=== PATIENT | male | born 1970 | race Hispanic/Latino ===

== ENCOUNTER 2018-04-18 19:10 | Emergency (ER) | payer OTHER ==
--- NOTE | 2018-04-18 20:22 | RAD REPORT ---
EXAM DESCRIPTION: RAD - Femur Right - 04/18/2018 8:03 pm CLINICAL HISTORY: Leg pain, blunt force trauma COMPARISON: None. FINDINGS: No fracture, dislocation or periosteal reaction noted. No acute or suspicious bony finding . No air or foreign body in the soft tissues. No evidence for joint effusion. There is spurring at th e quadriceps attachment to the patella. No hip joint effusion. IMPRESSION: Negative right femur examination for acute or significant finding. .
[2018-04-18] MEDS ORDERED: HYDROCODONE/APAP 10/325 TAB ONE (20:40)
[2018-04-18] MEDS ORDERED: IBUPROFEN 400 MG TAB ONE (20:40)
--- NOTE | 2018-04-18 21:52 | EDPHYS ---
Physician Documentation [facility] Name: Miguel Garrido Age: 47 yrs Sex: Male : 1970 Arrival Date: 04/18/2018 Time: 19:13 Bed 24 Private MD: ED Physician Giovanni Smith HPI: 04/18 20:21 This 47 yrs old Male presents to ER via Wheelchair with complaints of Fall pattie Injury, Leg Injury, Leg Pain. Historical: - Allergies: 19:32 No Known Allergies; bp - Home Meds: 19:32 Metformin Oral [Active]; bp - PMHx: 19:32 Diabetes - NIDDM; bp - Immunization history:: Adult Immunizations up to date. - Social history:: Smoking status: Patient uses tobacco products, smokes one-half pack cigarettes per day, Patient/guardian denies using alcohol. - Ebola Screening: : Patient negative for fever greater than or equal to 101.5 degrees Fahrenheit, and additional compatible Ebola Virus Disease symptoms Patient denies exposure to infectious person Patient denies travel to an Ebola-affected area in the 21 days before illness onset No symptoms or risks identified at this time. ROS: 20:22 Constitutional: Negative for fever, chills, and weight loss, Eyes: Negative for injury, pattie pain, redness, and discharge, ENT: Negative for injury, pain, and discharge, Neck: Negative for injury, pain, and swelling, Cardiovascular: Negative for chest pain, palpitations, and edema, Respiratory: Negative for shortness of breath, cough, wheezing, and pleuritic chest pain, Abdomen/GI: Negative for abdominal pain, nausea, vomiting, diarrhea, and constipation, Back: Negative for injury and pain, : Negative for injury, bleeding, discharge, and swelling, Skin: Negative for injury, rash, and discoloration, Neuro: Negative for headache, weakness, numbness, tingling, and seizure, Psych: Negative for depression, anxiety, suicide ideation, homicidal ideation, and hallucinations, Allergy/Immunology: Negative for hives, rash, and allergies, Endocrine: Negative for neck swelling, polydipsia, polyuria, polyphagia, and marked weight changes, Hematologic/Lymphatic: Negative for swollen nodes, abnormal bleeding, and unusual bruising. 20:22 MS/extremity: Positive for injury or acute deformity, pain, of the lateral aspect of right thigh and right quadriceps. Exam: 20:22 Constitutional: This is a well developed, well nourished patient who is awake, alert, pattie and in no acute distress. Head/Face: Normocephalic, atraumatic. Eyes: Pupils equal round and reactive to light, extra-ocular motions intact. Lids and lashes normal. Conjunctiva and sclera are non-icteric and not injected. Cornea within normal limits. Periorbital areas with no swelling, redness, or edema. ENT: Nares patent. No nasal discharge, no septal abnormalities noted. Tympanic membranes are normal and external auditory canals are clear. Oropharynx with no redness, swelling, or masses, exudates, or evidence of obstruction, uvula midline. Mucous membranes moist. Neck: Trachea midline, no thyromegaly or masses palpated, and no cervical lymphadenopathy. Supple, full range of motion without nuchal rigidity, or vertebral point tenderness. No Meningismus. Chest/axilla: Normal chest wall appearance and motion. Nontender with no deformity. No lesions are appreciated. Cardiovascular: Regular rate and rhythm with a normal S1 and S2. No gallops, murmurs, or rubs. Normal PMI, no JVD. No pulse deficits. Respiratory: Lungs have equal breath sounds bilaterally, clear to auscultation and percussion. No rales, rhonchi or wheezes noted. No increased work of breathing, no retractions or nasal flaring. Abdomen/GI: Soft, non-tender, with normal bowel sounds. No distension or tympany. No guarding or rebound. No evidence of tenderness throughout. Back: No spinal tenderness. No costovertebral tenderness. Full range of motion. Male : Normal genitalia with no discharge or lesions. Skin: Warm, dry with normal turgor. Normal color with no rashes, no lesions, and no evidence of cellulitis. Neuro: Awake and alert, GCS 15, oriented to person, place, time, and situation. Cranial nerves II-XII grossly intact. Motor strength 5/5 in all extremities. Sensory grossly intact. Cerebellar exam normal. Normal gait. Psych: Awake, alert, with orientation to person, place and time. Behavior, mood, and affect are within normal limits. 20:22 Musculoskeletal/extremity: ROM: limited active range of motion, limited passive range of motion, Circulation is intact in all extremities. Sensation intact. Compartment Syndrome exam of affected extremity: is normal. DVT Exam: negative Homans' sign noted on exam, no appreciated bluish discoloration, no erythema, no increased warmth, pain, swelling, tenderness. Vital Signs: 19:32 BP 112 / 75; Pulse 71; Resp 16; Temp 98; Pulse Ox 97% ; Weight 99.79 kg; Height 5 ft. 8 bp in. (172.72 cm); 20:30 BP 131 / 74; Pulse 92; Resp 14; Pulse Ox 98% ; bp 19:32 Body Mass Index 33.45 (99.79 kg, 172.72 cm) bp MDM: 19:33 Patient medically screened. [facility] 20:22 Data reviewed: vital signs, nurses notes, radiologic studies, plain films. [facility] 04/18 19:36 Order name: XRAY Femur RIGHT; Complete Time: 20:27 bp 04/18 20:21 Order name: Crutch Training; Complete Time: 20:28 [facility] 04/18 20:21 Order name: Ice pack; Complete Time: 20:28 [facility] Administered Medications: 20:45 Drug: Motrin 600 mg Route: PO; bp 20:56 Follow up: Response: Pain is decreased bp 20:45 Drug: [place] 10 mg-325 mg 1 tabs Route: PO; bp 20:57 Follow up: Response: Pain is decreased bp Disposition: 04/18/18 20:31 Discharged to Home. Impression: Contusion of right thigh. - Condition is Stable. - Discharge Instructions: Contusion, Type 2 Diabetes Mellitus, Diagnosis, Adult, Contusion, [id number], Type 2 Diabetes Mellitus, Self Care, Adult, Type 2 Diabetes Mellitus, Self Care, Adult, [id number]. - Prescriptions for Ibuprofen 600 mg Oral Tablet - take 1 tablet by ORAL route every 8 hours As needed take with food; 21 tablet. Tylenol- Codeine #3 300-30 mg Oral Tablet - take 2 tablet by ORAL route every 6 hours As needed; 30 tablet. - Medication Reconciliation Form, Thank You Letter, Antibiotic Education, Prescription Opioid Use form. - Follow up: Private Physician; When: 2 - 3 days; Reason: Recheck today's complaints, Continuance of care, Re-evaluation by your physician. Follow up: Norberto Hernandez MD; When: 2 - 3 days; Reason: Recheck today's complaints, Re-evaluation by your physician. - Problem is new. - Symptoms have improved. Signatures: Dispatcher [employer] EDMS Giovanni Smith MD MD cha Peltier, Brian, RN RN bp Corrections: (The following items were deleted from the chart) 21:00 20:31 04/18/2018 20:31 Discharged to Home. Impression: Contusion of right thigh. bp Condition is Stable. Forms are Medication Reconciliation Form, Thank You Letter, Antibiotic Education, Prescription Opioid Use. Follow up: Private Physician; When: 2 - 3 days; Reason: Recheck today's complaints, Continuance of care, Re-evaluation by your physician. Follow up: Norberto Hernandez; When: 2 - 3 days; Reason: Recheck today's complaints, Re-evaluation by your physician. Problem is new. Symptoms have improved. pattie
--- NOTE | 2018-04-18 21:52 | ER ---
Nurse's Notes [facility] Name: Miguel Garrido Age: 47 yrs Sex: Male : 1970 Arrival Date: 04/18/2018 Time: 19:13 Bed 24 Private MD: Diagnosis: Contusion of right thigh Presentation: 04/18 19:29 Presenting complaint: Patient states: A FRIDGE AND BHAVIN FELL ON MY R THIGH. Transition bp of care: patient was not received from another setting of care. Onset of symptoms was April 18, 2018 at 19:00. Risk Assessment: Do you want to hurt yourself or someone else? Patient reports no desire to harm self or others. Initial Sepsis Screen: Does the patient meet any 2 criteria? No. Patient's initial sepsis screen is negative. Does the patient have a suspected source of infection? No. Patient's initial sepsis screen is negative. Care prior to arrival: None. 19:29 Method Of Arrival: Wheelchair bp 19:29 Acuity: PRIMITIVO 4 bp Triage Assessment: 19:32 General: Appears in no apparent distress. uncomfortable, Behavior is calm, cooperative, bp appropriate for age. Pain: Complains of pain in right quadriceps. EENT: No deficits noted. Neuro: Level of Consciousness is awake, alert, obeys commands, Oriented to person, place, time, situation, Appropriate for age. Cardiovascular: No deficits noted. Respiratory: Airway is patent Respiratory effort is even, unlabored, Respiratory pattern is regular, symmetrical. GI: No signs and/or symptoms were reported involving the gastrointestinal system. : No signs and/or symptoms were reported regarding the genitourinary system. Derm: No deficits noted. Musculoskeletal: Circulation, motion, and sensation intact. Range of motion: intact in all extremities, NONE NOTED Swelling absent. Historical: - Allergies: 19:32 No Known Allergies; bp - Home Meds: 19:32 Metformin Oral [Active]; bp - PMHx: 19:32 Diabetes - NIDDM; bp - Immunization history:: Adult Immunizations up to date. - Social history:: Smoking status: Patient uses tobacco products, smokes one-half pack cigarettes per day, Patient/guardian denies using alcohol. - Ebola Screening: : Patient negative for fever greater than or equal to 101.5 degrees Fahrenheit, and additional compatible Ebola Virus Disease symptoms Patient denies exposure to infectious person Patient denies travel to an Ebola-affected area in the 21 days before illness onset No symptoms or risks identified at this time. Screenin:35 Abuse screen: Denies threats or abuse. Denies injuries from another. Nutritional bp screening: No deficits noted. Tuberculosis screening: No symptoms or risk factors identified. Fall Risk None identified. Assessment: 19:34 General: NO HEMATOMA OR DEFORMITY NOTED, + WEIGHT BEARING. bp 20:58 Reassessment: PT D/C HOME ON CRUTCHES WITH FAMILY, DX WITH R THIGH CONTUSION. bp Vital Signs: 19:32 BP 112 / 75; Pulse 71; Resp 16; Temp 98; Pulse Ox 97% ; Weight 99.79 kg; Height 5 ft. 8 bp in. (172.72 cm); 20:30 BP 131 / 74; Pulse 92; Resp 14; Pulse Ox 98% ; bp 19:32 Body Mass Index 33.45 (99.79 kg, 172.72 cm) bp ED Course: 19:13 Patient arrived in ED. al2 19:28 Bassam Diaz, LEANDRO is Primary Nurse. bp 19:31 Triage completed. bp 19:33 Giovanni Smith MD is Attending Physician. pattie 19:34 Arm band placed on. bp 19:35 Patient has correct armband on for positive identification. Placed in gown. Bed in low bp position. Call light in reach. Side rails up X2. Adult w/ patient. 20:00 X-ray completed. Patient tolerated procedure well. ml 20:01 XRAY Femur RIGHT In Process Unspecified. EDMS 20:31 Norberto Hernandez MD is Referral Physician. pattie 20:59 No provider procedures requiring assistance completed. Patient did not have IV access bp during this emergency room visit. Crutch training done. Administered Medications: 20:45 Drug: Motrin 600 mg Route: PO; bp 20:56 Follow up: Response: Pain is decreased bp 20:45 Drug: [place] 10 mg-325 mg 1 tabs Route: PO; bp 20:57 Follow up: Response: Pain is decreased bp Outcome: 20:31 Discharge ordered by . ptatie 20:59 Discharged to home with crutches, with family. bp 20:59 Condition: stable 20:59 Discharge instructions given to patient, Instructed on discharge instructions, follow up and referral plans. medication usage, crutch walking, Demonstrated understanding of instructions, follow-up care, medications, crutch walking, Prescriptions given X 2. 21:00 Patient left the ED. bp Signatures: Dispatcher [employer] Giovanni Walker MD MD cha Lopez, Melissa ml Peltier, Brian, RN RN bp Mercado, Bebe reagan
== END 2018-04-18 21:00 | disposition home or self-care (01) ==
LOC: ER 19:10
DX: S70.11XA Contusion of right thigh, initial encounter (principal); W19.XXXA Unspecified fall, initial encounter; Y93.9 Activity, unspecified; Y92.9 Unspecified place or not applicable; E11.9 Type 2 diabetes mellitus without complications; F17.210 Nicotine dependence, cigarettes, uncomplicated
CPT/HCPCS: 99284

== ENCOUNTER 2020-04-09 16:11 | Observation (INO) | payer OTHER ==
[2020-04-09 16:54] LABS: Absolute Lymphocytes (CBC) 1.4 K/uL (0.7-4.9); Basophils % 0.6 % (0-1.3); Hematocrit 47.6 % (39.6-49.0); Lymphocytes % 13.4 % (15.3-44.8); MPV 9.3 fL (7.6-11.3); RBC Red Blood Cell Count 5.34 M/uL (4.33-5.43)
[2020-04-09 17:02] LABS: Protime INR 1.08
[2020-04-09 17:17] LABS: Albumin 3.9 g/dL (3.4-5.0); Bilirubin Direct 0.2 mg/dL (0-0.2); Bilirubin Total 0.7 mg/dL (0.2-1.0); Magnesium 1.7 mg/dL (1.8-2.4); Potassium 3.7 mmol/L (3.5-5.1); Protein, Total 8.1 g/dL (6.4-8.2); Troponin (Emerg Dept Use Only) 0.04 ng/mL (0.0-0.045)
--- NOTE | 2020-04-09 17:21 | RAD REPORT ---
EXAM DESCRIPTION: RAD - Chest Single View - 04/09/2020 4:50 pm CLINICAL HISTORY: dizziness, shortness of breath COMPARISON: None TECHNIQUE: AP portable chest image was obtained 04/09/2020 4:50 pm . FINDINGS: Lung volumes are low. No peripheral mass or consolidation. Lung markings and vasculature a re accentuated by body habitus and low lung volumes. Mild edema could be masked. Heart and vasculature are normal. No measurable pleural effusion and no pneumothorax. No acute bony abnormality seen. No acute aortic findings suspected. IMPRESSION: No acute cardiopulmonary process. Low lung volumes accentuate vasculature and lung markings. This could potentially mask early edema.
[2020-04-09] MEDS ORDERED: MAGNESIUM SULFATE 1 gm IVPB 1 GM/100 ML BAG IV ONE (18:15)
--- NOTE | 2020-04-09 19:56 | EDPHYS ---
Physician Documentation [facility] Name: Miguel Garrido Age: 49 yrs Sex: Male : 1970 Arrival Date: 04/09/2020 Time: 16:12 Bed 18 Private MD: ED Physician Jose Kohler HPI: 04/09 16:19 This 49 yrs old Male presents to ER via EMS with complaints of General cp Weakness and Dizziness. 16:19 The patient presents to the emergency department with weakness of the entire body, cp generalized weakness, that is mild. Onset: The symptoms/episode began/occurred today. Context: occurred while the patient was working. 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 cp Patient reports he sat down and started feeling better. Denies having chest pain, but reports shortness of breath with symptoms. Historical: - Allergies: 16:15 No Known Allergies; bp - Home Meds: 16:15 Metformin Oral [Active]; bp - PMHx: 16:15 Diabetes - NIDDM; bp - Immunization history:: Adult Immunizations up to date. - Social history:: Smoking status: Patient denies any tobacco usage or history of. ROS: 16:25 Constitutional: Negative for body aches, chills, fever, poor PO intake. cp 16:25 Eyes: Negative for injury, pain, redness, and discharge. cp 16:25 Cardiovascular: Negative for chest pain, palpitations. cp 16:25 Respiratory: Negative for cough, wheezing. 16:25 Abdomen/GI: Negative for abdominal pain, nausea, vomiting, and diarrhea. 16:25 Back: Negative for radiated pain. 16:25 Neuro: Positive for dizziness, weakness, Negative for altered mental status, syncope. 16:25 All other systems are negative. Exam: 16:30 Constitutional: The patient appears in no acute distress, alert, awake, cp non-diaphoretic, non-toxic, well developed, well nourished, obese. 16:30 Head/Face: Normocephalic, atraumatic. cp 16:30 Eyes: Periorbital structures: appear normal. 16:30 ENT: External ear(s): are unremarkable, Nose: is normal, Mouth: Lips: moist, Oral mucosa: moist, Posterior pharynx: Airway: no evidence of obstruction, patent. 16:30 Neck: ROM/movement: is normal, is supple, without pain, no range of motions limitations. 16:30 Chest/axilla: Inspection: normal, Palpation: is normal, no crepitus, no tenderness. 16:30 Cardiovascular: Rate: tachycardic, Rhythm: regular, Edema: is not appreciated, JVD: is not appreciated. 16:30 Respiratory: the patient does not display signs of respiratory distress, Respirations: normal, no use of accessory muscles, no retractions, labored breathing, is not present, Breath sounds: are clear throughout, no decreased breath sounds. 16:30 Abdomen/GI: Inspection: abdomen appears normal, Palpation: abdomen is soft and non-tender, in all quadrants. 16:30 Neuro: Orientation: to person, place \T\ time. Mentation: is normal, Motor: moves all fours, strength is normal. 17:01 ECG was reviewed by the Attending Physician. cp Vital Signs: 16:12 BP 106 / 70; Pulse 109; Resp 17; Temp 97.9; Pulse Ox 98% ; bp 16:13 BP 111 / 72; Pulse 104; Resp 18; Temp 98.5(O); Pulse Ox 97% on R/A; Weight 117.93 kg jp3 (R); Height 5 ft. 8 in. (172.72 cm) (R); Pain 0/10; 16:48 BP 117 / 75 LA Supine (auto/lg); Pulse 97; Pulse Ox 97% on R/A; jp3 16:50 BP 123 / 79 Sitting; Pulse 97; Pulse Ox 100% on R/A; bp 16:52 BP 119 / 75 Standing; Pulse 106; Pulse Ox 100% on R/A; bp 17:43 BP 120 / 68; Pulse 99; Resp 24; Pulse Ox 97% ; bp 18:07 BP 119 / 67; Pulse 100; Resp 23; Pulse Ox 98% ; bp 19:20 BP 121 / 75; Pulse 89; Resp 20; Temp 98.2; Pulse Ox 99% ; Pain 0/10; rr5 22:55 BP 103 / 59; Pulse 79; Resp 20 S; Pulse Ox 96% on R/A; bb 16:13 Body Mass Index 39.53 (117.93 kg, 172.72 cm) jp3 16:52 Pt did NOT report any dizziness. bp NIH Stroke Scale Scores: 16:17 NIHSS Score: 0 bp MDM: 16:17 Patient medically screened. 19:50 Data reviewed: vital signs, nurses notes, lab test result(s), EKG, radiologic studies, cp plain films, and as a result, I will admit patient. 19:50 Test interpretation: by ED physician or midlevel provider: ECG. Counseling: I had a cp detailed discussion with the patient and/or guardian regarding: the historical points, exam findings, and any diagnostic results supporting the discharge/admit diagnosis, lab results, radiology results. 19:55 Physician consultation: Valerio ALONZO was called at 19:55, no answer. cp 20:00 Physician consultation: Valerio ALONZO was called at 20:00, was contacted at 20:00, cp regarding admission, to the telemetry unit. patient's condition. 04/09 16:19 Order name: Basic Metabolic Panel; Complete Time: 17:51 04/09 18:25 Interpretation: Normal except: CO2 20; GLUC 322; CRE 1.53; GFR 48. 04/09 16:19 Order name: CBC with Diff; Complete Time: 17:51 04/09 18:25 Interpretation: Normal except: MELISSA% 79.1; LYM% 13.4; NEUT A 8.3. 04/09 16:19 Order name: LFT's; Complete Time: 17:51 04/09 18:25 Interpretation: Normal except: AST 51; ALT 114; GLOB 4.2; A/G 0.9. 04/09 16:19 Order name: Magnesium; Complete Time: 17:51 04/09 17:52 Interpretation: Abnormal: MG 1.7. 04/09 16:19 Order name: PT-INR; Complete Time: 17:51 04/09 18:25 Interpretation: Abnormal: PT 12.7. 04/09 16:19 Order name: Troponin (emerg Dept Use Only); Complete Time: 17:51 04/09 18:26 Interpretation: Reviewed. 04/09 16:19 Order name: XRAY Chest (1 view); Complete Time: 17:51 04/09 16:19 Order name: CPK; Complete Time: 17:51 04/09 18:35 Order name: Glucose, Ancillary Testing; Complete Time: 18:36 EDMS 04/09 18:57 Order name: Troponin I; Complete Time: 19:47 cp 04/09 19:47 Interpretation: Abnormal: TROP 0.06. cp 04/09 19:57 Order name: CT Head Brain wo Cont; Complete Time: 23:39 cp 04/09 23:39 Interpretation: Report reviewed. cp 04/09 20:01 Order name: COVID-19 bb 04/09 20:01 Order name: CORONAVIRUS EDAR 04/09 16:19 Order name: Orthostatics; Complete Time: 17:08 cp 04/09 16:19 Order name: EKG; Complete Time: 16:20 cp 04/09 16:19 Order name: Cardiac monitoring; Complete Time: 16:40 04/09 16:19 Order name: EKG - Nurse/Tech; Complete Time: 17:08 cp 04/09 16:19 Order name: IV Saline Lock; Complete Time: 16:39 cp 04/09 16:19 Order name: Labs collected and sent; Complete Time: 17:08 04/09 16:19 Order name: O2 Per Protocol; Complete Time: 16:40 cp 04/09 16:19 Order name: O2 Sat Monitoring; Complete Time: 16:40 04/09 18:13 Order name: Accucheck Blood Glucose; Complete Time: 18:38 cp EC:01 Rate is 96 beats/min. Rhythm is regular. GA interval is normal. QRS interval is normal. cp QT interval is normal. T waves are Inverted in lead aVR. Interpreted by me. Reviewed by me. Administered Medications: 16:30 Drug: NS 0.9% 1000 ml Route: IV; Rate: 1 bolus; Site: right forearm; bp 18:07 Drug: Magnesium Sulfate 1 grams Route: IVPB; Infused Over: 1 hrs; Site: right forearm; bp 19:57 Drug: Aspirin Chewable Tablet 324 mg Route: PO; rr5 21:00 Follow up: Response: No adverse reaction rr5 Disposition: 04/10 14:26 Co-signature as Attending Physician, Jose Kohler MD I agree with the assessment and kdr plan of care. Disposition: 04/09/20 19:56 Hospitalization ordered by Ghanshyam Teran for Observation. Preliminary diagnosis are Weakness - general, Dizziness and giddiness, Elevated Troponin. - Bed requested for Telemetry/MedSurg (observation). - Status is Observation. rr5 - Condition is Stable. - Problem is new. - Symptoms have improved. NIH Stroke Scale - NIH Stroke Score Date: 04/09/2020 Time: 16:17 Total Score = 0 1a. Level of Consciousness (LOC) - 0(Alert) 1b. Level of Consciousness (LOC) (Year \T\ Age) - 0(Both) 1c. LOC Commands (Open \T\ Closes Eyes/Functional Mental Disability Teacher) - 0(Both) 2. Best Gaze (Lateral Gaze Paresis) - 0(Normal) 3. Visual Field Loss - 0(No visual loss) 4. Facial Palsy - 0(Normal) 5a. Left Arm: Motor (10-second hold) - 0(No drift) 5b. Right Arm: Motor (10-second hold) - 0(No drift) 6a. Left Leg: Motor (5-second hold - always test supine) - 0(No drift) 6b. Right Leg: Motor (5-second hold - always test supine) - 0(No drift) 7. Limb Ataxia (finger/nose \T\ heel/perkins - test with eyes open) - 0(Absent) 8. Sensory Loss (pinprick arms/legs/face) - 0(Normal) 9. Best Language: Aphasia (description/naming/reading) - 0(No aphasia) 10. Dysarthria (speech clarity - read or repeat words) - 0(Normal) 11. Extinction and Inattention (visual/tactile/auditory/spatial/personal) - 0(No abnormality) Initials: bp Signatures: Dispatcher [employer] EDMS Jose Kohler MD MD [facility] Julia Mccartney RN RN tl1 Giovanni Knowles PA PA cp Bassam Diaz RN RN bp Timmy Hagen, LEANDRO RN rr5 Corrections: (The following items were deleted from the chart) 04/09 19:58 19:56 Hospitalization Ordered by Ghanshyam Teran DO for Observation. Preliminary cp diagnosis is Weakness - general; Dizziness and giddiness. Bed requested for Telemetry/MedSurg (observation). Status is Observation. Condition is Stable. Problem is new. Symptoms have improved. cp 22:31 19:58 04/09/2020 19:56 Hospitalization Ordered by Ghanshyam Teran DO for tl1 Observation. Preliminary diagnosis is Weakness - general; Dizziness and giddiness; Elevated Troponin. Bed requested for Telemetry/MedSurg (observation). Status is Observation. Condition is Stable. Problem is new. Symptoms have improved. cp 23:32 22:31 04/09/2020 19:56 Hospitalization Ordered by Ghanshyam Teran DO for rr5 Observation. Preliminary diagnosis is Weakness - general; Dizziness and giddiness; Elevated Troponin. Bed requested for Telemetry/MedSurg (observation). Status is Observation. Condition is Stable. Problem is new. Symptoms have improved. tl1
--- NOTE | 2020-04-09 19:56 | ER ---
Nurse's Notes [facility] Name: Miguel Garrido Age: 49 yrs Sex: Male : 1970 Arrival Date: 04/09/2020 Time: 16:12 Bed 18 Private MD: Diagnosis: Weakness-general;Dizziness and giddiness;Elevated Troponin Presentation: 04/09 16:12 Chief complaint: EMS states: DIZZINESS AND GEN WEAKNESS WHILE WORKING OUTSIDE. bp Coronavirus screen: At this time, the client does not indicate any symptoms associated with coronavirus-19. Ebola Screen: No symptoms or risks identified at this time. No acute neurological deficit is noted. The patients blood glucose was checked prior to arriving to the hospital and was found to be hyperglycemic. The patient has been moved to a treatment room. Initial Sepsis Screen: Does the patient meet any 2 criteria? HR > 90 bpm. No. Patient's initial sepsis screen is negative. Does the patient have a suspected source of infection? No. Patient's initial sepsis screen is negative. Risk Assessment: Do you want to hurt yourself or someone else? Patient reports no desire to harm self or others. Onset of symptoms was April 09, 2020 at 15:00. Care prior to arrival: Medication(s) given: Normal saline infusion, 500 mL, IV initiated. 18 GA, in the right forearm, Glucose check: 387. 16:12 Method Of Arrival: EMS: [facility] bp 16:12 Acuity: PRIMITIVO 3 bp Triage Assessment: 16:15 The onset of the patients symptoms was April 09, 2020 at 15:00. General: Appears in bp no apparent distress. comfortable. General: Behavior is calm, cooperative, appropriate for age. Pain: Denies pain. EENT: No deficits noted. Neuro: Reports dizziness, weakness NOW RESOLVED. Cardiovascular: No deficits noted. Respiratory: No deficits noted. GI: No signs and/or symptoms were reported involving the gastrointestinal system. : No signs and/or symptoms were reported regarding the genitourinary system. Derm: No deficits noted. Musculoskeletal: No deficits noted. Historical: - Allergies: 16:15 No Known Allergies; bp - Home Meds: 16:15 Metformin Oral [Active]; bp - PMHx: 16:15 Diabetes - NIDDM; bp - Immunization history:: Adult Immunizations up to date. - Social history:: Smoking status: Patient denies any tobacco usage or history of. Screenin:17 Abuse screen: Denies threats or abuse. Denies injuries from another. Nutritional bp screening: No deficits noted. Tuberculosis screening: No symptoms or risk factors identified. Fall Risk None identified. Assessment: 16:17 VAN Scoring: Arm Drift: Patients demonstrates NO arm weakness. Patient is VAN Negative. bp The patient has not been NPO before screening. The patient is alert, and able to follow commands. The patient does not exhibit slurred or garbled speech. The patient is not exhibiting difficulty speaking. The patient does not exhibit difficulty understanding words. The patient is able to swallow own secretions with no drooling or need for suction. Patient tolerated one teaspoon of water. No drooling, immediate coughing, gurgling, or clearing of the throat was noted. The patient tolerated 90mL of water. No drooling, immediate coughing, gurgling, or clearing of the throat was noted. The patient passed the bedside swallow screening. Oral medications may be given as ordered. Contact Physician for further diet orders. Provider notified of bedside swallow screening results: Giovanni REY. T-PA (Activase) Screening: Contraindications: Rapidly improving condition or minor deficit: Yes. General: SEE TRIAGE NOTE. 17:43 Reassessment: IVF INFUSING. PT STATES RELIEF OF S/S. bp 18:07 Reassessment: ELECTROLYTES INFUSING. PT STATES RELIEF OF S/S. bp 19:20 General: Appears in no apparent distress. comfortable, Behavior is calm, cooperative, rr5 appropriate for age. 19:20 Pain: Denies pain. Neuro: Level of Consciousness is awake, alert, obeys commands, rr5 Oriented to person, place, time, situation, Reports weakness. Cardiovascular: Capillary refill < 3 seconds Patient's skin is warm and dry. Respiratory: Airway is patent Respiratory effort is even, unlabored, Respiratory pattern is regular, symmetrical. GI: No signs and/or symptoms were reported involving the gastrointestinal system. : No signs and/or symptoms were reported regarding the genitourinary system. EENT: No signs and/or symptoms were reported regarding the EENT system. Derm: Skin is intact, is healthy with good turgor, Skin temperature is warm. Musculoskeletal: Circulation, motion, and sensation intact. Capillary refill < 3 seconds. 21:40 Reassessment: Patient appears in no apparent distress at this time. Patient is alert, rr5 oriented x 3, equal unlabored respirations, skin warm/dry/pink. awaiting for room assignment and covid result. snacks given with good appetite. 22:50 Reassessment: Patient appears in no apparent distress at this time. Patient is alert, rr5 oriented x 3, equal unlabored respirations, skin warm/dry/pink. resting eyes closed breathing spontaneously at room air. 22:55 Reassessment: report called to Bora REEVES for room 222. bb 23:29 Reassessment: Patient appears in no apparent distress at this time. Patient is alert, rr5 oriented x 3, equal unlabored respirations, skin warm/dry/pink. transferred to room 222. Vital Signs: 16:12 BP 106 / 70; Pulse 109; Resp 17; Temp 97.9; Pulse Ox 98% ; bp 16:13 BP 111 / 72; Pulse 104; Resp 18; Temp 98.5(O); Pulse Ox 97% on R/A; Weight 117.93 kg jp3 (R); Height 5 ft. 8 in. (172.72 cm) (R); Pain 0/10; 16:48 BP 117 / 75 LA Supine (auto/lg); Pulse 97; Pulse Ox 97% on R/A; jp3 16:50 BP 123 / 79 Sitting; Pulse 97; Pulse Ox 100% on R/A; bp 16:52 BP 119 / 75 Standing; Pulse 106; Pulse Ox 100% on R/A; bp 17:43 BP 120 / 68; Pulse 99; Resp 24; Pulse Ox 97% ; bp 18:07 BP 119 / 67; Pulse 100; Resp 23; Pulse Ox 98% ; bp 19:20 BP 121 / 75; Pulse 89; Resp 20; Temp 98.2; Pulse Ox 99% ; Pain 0/10; rr5 22:55 BP 103 / 59; Pulse 79; Resp 20 S; Pulse Ox 96% on R/A; bb 16:13 Body Mass Index 39.53 (117.93 kg, 172.72 cm) jp3 16:52 Pt did NOT report any dizziness. bp NIH Stroke Scale Scores: 16:17 NIHSS Score: 0 bp ED Course: 16:12 Patient arrived in ED. bp 16:14 Giovanni Knowles PA is PHCP. cp 16:14 Jose Kohler MD is Attending Physician. cp 16:14 Triage completed. bp 16:15 Patient has correct armband on for positive identification. Placed in gown. Bed in low jp3 position. Call light in reach. Side rails up X 1. Verbal reassurance given. desk monitor on. Pulse ox on. NIBP on. 16:15 Arm band placed on. bp 16:17 Maintain EMS IV. Dressing intact. Good blood return noted. Site clean \T\ dry. Gauge \T\ bp site: 18 G R FA. 16:27 Bassam Diaz, LEANDRO is Primary Nurse. bp 16:51 XRAY Chest (1 view) In Process Unspecified. EDMS 19:55 Ghanshyam Teran DO is Hospitalizing Provider. cp 20:05 Pt swabbed for COVID-19. jp3 20:10 COVID-[address] Sent. jp3 20:34 CT Head Brain wo Cont In Process Unspecified. EDMS 23:12 No provider procedures requiring assistance completed. Patient admitted, IV remains in rr5 place. intact, No redness/swelling at site. Administered Medications: 16:30 Drug: NS 0.9% 1000 ml Route: IV; Rate: 1 bolus; Site: right forearm; bp 18:07 Drug: Magnesium Sulfate 1 grams Route: IVPB; Infused Over: 1 hrs; Site: right forearm; bp 19:57 Drug: Aspirin Chewable Tablet 324 mg Route: PO; rr5 21:00 Follow up: Response: No adverse reaction rr5 Outcome: 19:56 Decision to Hospitalize by Provider. cp 23:12 Admitted to Med/surg accompanied by [facility], via stretcher, room 222. rr5 23:12 Condition: stable 23:12 Instructed on the need for admit. 23:32 Patient left the ED. rr5 NIH Stroke Scale - NIH Stroke Score Date: 04/09/2020 Time: 16:17 Total Score = 0 1a. Level of Consciousness (LOC) - 0(Alert) 1b. Level of Consciousness (LOC) (Year \T\ Age) - 0(Both) 1c. LOC Commands (Open \T\ Closes Eyes/Hand Grinder) - 0(Both) 2. Best Gaze (Lateral Gaze Paresis) - 0(Normal) 3. Visual Field Loss - 0(No visual loss) 4. Facial Palsy - 0(Normal) 5a. Left Arm: Motor (10-second hold) - 0(No drift) 5b. Right Arm: Motor (10-second hold) - 0(No drift) 6a. Left Leg: Motor (5-second hold - always test supine) - 0(No drift) 6b. Right Leg: Motor (5-second hold - always test supine) - 0(No drift) 7. Limb Ataxia (finger/nose \T\ heel/perkins - test with eyes open) - 0(Absent) 8. Sensory Loss (pinprick arms/legs/face) - 0(Normal) 9. Best Language: Aphasia (description/naming/reading) - 0(No aphasia) 10. Dysarthria (speech clarity - read or repeat words) - 0(Normal) 11. Extinction and Inattention (visual/tactile/auditory/spatial/personal) - 0(No abnormality) Initials: bp Signatures: Dispatcher [employer] EDChiquita Blevins, LEANDRO RN bb Giovanni Knowles PA PA Bassam Patterson RN RN bp Zackery Gay jp3 Timmy Hagen, RN RN rr5 Corrections: (The following items were deleted from the chart) 17:09 16:50 BP 123 / 79; Pulse 97bpm; Pulse Ox 100% RA; jp3 bp 17:09 16:52 BP 119 / 75; Pulse 106bpm; Pulse Ox 100% RA; Pt did NOT report any bp dizziness.; jp3
[2020-04-09] MEDS ORDERED: ASPIRIN 81 MG CHEWABLE TABLET ONE (20:03)
--- NOTE | 2020-04-09 20:43 | P.HP ---
Certification for Inpatient Patient admitted to: Observation With expected LOS: <2 Midnights Patient will require the following post-hospital care: None Practitioner: I am a practitioner with admitting privileges, knowledge of patient current condition, hospital course, and medical plan of care. Services: Services provided to patient in accordance with Admission requirements found in Title 42 Section 412.3 of the Code of Federal Regulations <Valerio Michel - Last Filed: 04/09/20 20:37> Patient History Date of Service: 04/09/20 Primary Care Provider: Dr. Blakely Reason for admission: Chest pain History of Present Illness: 49-year-old male with history of diabetes mellitus type 2, hypothyroidism presents emergency department for shortness of breath, dizziness. 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 Patient reports that this has persisted and was bad enough to bring him to the emergency department. During his evaluation in the emergency department patient was found to have slightly elevated troponin level with initial troponin being 0.04 and repeat being 0.06. Patient also hyperglycemic. ED provider wishes to admit patient under observation status for further evaluation and management. When I saw the patient in the emergency department he is awake, alert, oriented x3. Patient in no distress at this time. Patient reports he does feel a little bit short of breath. Patient be admitted for further evaluation and management. 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 lives with his - Family History Father -: Hypertension, Diabetes Mother -: Hypertension, Diabetes - Social History Smoking Status: Current every day smoker Counseled patient to stop smoking for: less than 10 minutes Alcohol use: No CD- Drugs: No Caffeine use: Yes Place of Residence: Home <Valerio Michel - Last Filed: 04/09/20 20:37> Date of Service: 04/10/20 <Timmy Oneal - Last Filed: 04/10/20 18:51> Review of Systems Respiratory: Shortness of Breath Cardiovascular: Light Headedness, As per HPI <Valerio Michel - Last Filed: 04/09/20 20:37> Physical Examination - Physical Exam General: Alert, In no apparent distress, Oriented x3 HEENT: Atraumatic, PERRLA, Mucous membr. moist/pink Neck: Supple, 2+ carotid pulse no bruit Respiratory: Clear to auscultation bilaterally, Normal air movement Cardiovascular: Regular rate/rhythm, Normal S1 S2 Capillary refill: <2 Seconds Gastrointestinal: Normal bowel sounds, No tenderness Musculoskeletal: No tenderness Integumentary: No rashes Neurological: Normal gait, Normal speech, Normal strength at 5/5 x4 extr, Normal tone, Normal affect - Studies Laboratory Data (last 24 hrs) 04/09/20 19:05: Troponin I 0.06 H 04/09/20 16:45: PT 12.7 H, INR 1.08 04/09/20 16:45: WBC 10.5, Hgb 16.0, Hct 47.6, Plt Count 226 04/09/20 16:45: Sodium 139, Potassium 3.7, BUN 14, Creatinine 1.53 H, Glucose 322 H, Magnesium 1.7 L, Total Bilirubin 0.7, AST 51 H, ALT 114 H, Alkaline Phosphatase 84 <Valerio Michel - Last Filed: 04/09/20 20:37> - Studies Laboratory Data (last 24 hrs) 04/09/20 19:05: Troponin I 0.06 H Microbiology Data (last 24 hrs): 04/09/20 20:05 Nasopharnyx Coronavirus COVID-19 PCR - Final <Timmy Oneal - Last Filed: 04/10/20 18:51> Assessment and Plan - Plan Assessment Shortness of breath with elevated troponin rule out out ACS Diabetes mellitus type 2 with hyperglycemia Hypothyroidism Tobacco abuse Plan Shortness of breath with elevated troponin rule out out ACS: Will trend troponins, cardiology consult in place, echocardiogram ordered. Continue with beta-tavares therapy, aspirin. DVT prophylaxis with Lovenox 40 mg subcutaneous once daily. Discussed need for tobacco cessation. Patient with multiple risk factors will likely require cardiology workup although this may be recommended to be completed on outpatient basis. Appreciate further input from cardiology. Diabetes mellitus type 2 with hyperglycemia: A.c. HS Accu-Cheks, sliding scale insulin therapy. Will check A1c with morning labs as patient is hyperglycemic. Patient will likely need to follow up with primary care doctor for further management and adjustment of medications. Hypothyroidism: Continue home medication, check thyroid panel with morning labs. Tobacco abuse: Discussed need for tobacco cessation. Patient deferred nicotine patch on admission. Discharge Plan: Home Plan to discharge in: 24 Hours - Advance Directives Does patient have a Living Will: No Does patient have a Durable POA for Healthcare: No - Code Status/Comfort Care Code Status Assessed: Yes (Patient is full code) Critical Care: No Time Spent Managing Pts Care (In Minutes): 55 <Valerio Michel - Last Filed: 04/09/20 20:37> Physician Review Additional Text: Plan of care discussed with Valerio Michel, and I agree with the management plan as noted above. <Timmy Oneal - Last Filed: 04/10/20 18:51>
--- NOTE | 2020-04-09 20:47 | RAD REPORT ---
EXAM DESCRIPTION: CT - Head Brain Wo Cont - 04/09/2020 8:34 pm CLINICAL HISTORY: Dizziness;Weakness COMPARISON: No comparisons TECHNIQUE: Axial 5 mm thick images of the head were obtained without IV contrast. All CT scans are performed using dose optimization technique as appropriate and may include automated exposure control or mA/KV adjustment according to patient size. FINDINGS: No intracranial hemorrhage, mass, edema or shift of mid-line structures. No acute infarcti on changes seen. No abnormal extra-axial fluid collections. Ventricles are normal. Mastoid air cells and visualized portions of the paranasal sinuses are clear. No acute bony findings. IMPRESSION: Negative non-contrast CT head examination.
[2020-04-09] MEDS ORDERED: ACETAMINOPHEN 500 MG TAB PO PRN (23:52)
[2020-04-09] MEDS ORDERED: ONDANSETRON 4 MG/2 ML VIAL IV PRN (23:52)
[2020-04-10] MEDS: INSULIN -REGULAR HUMAN 50 UNIT/0.5 ML ML SQ SCH ×3 (00:27→12:37)
[2020-04-10] MEDS: NA CHLORIDE 0.9% 1,000 ML IV SCH ×3 (00:27→11:14)
[2020-04-10 01:51] VITALS: BMI 32.1
[2020-04-10 04:28] LABS: Absolute Lymphocytes (CBC) 2.4 K/uL (0.7-4.9); Basophils % 0.8 % (0-1.3); Lymphocytes % 33.2 % (15.3-44.8); MPV 9.5 fL (7.6-11.3)
[2020-04-10 04:46] LABS: Potassium 3.8 mmol/L (3.5-5.1); Thyroid Stimulating Hormone 0.159 uIU/mL (0.360-3.740)
[2020-04-10] MEDS ORDERED: POTASSIUM CL SA 10 MEQ TAB PO ONE (06:00)
[2020-04-10] MEDS ORDERED: METOPROLOL TAR 25 MG TAB PO SCH (06:00)
[2020-04-10] MEDS ORDERED: ENOXAPARIN 40 MG/0.4 ML SQ SCH (09:00)
[2020-04-10] MEDS ORDERED: ASPIRIN EC 81 MG TAB PO SCH (09:00)
[2020-04-10 09:05] VITALS: BP 113/66; TEMP 97.4
[2020-04-10 10:59] VITALS: O2SAT 97
--- NOTE | 2020-04-10 11:12 | EKG ---
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
--- NOTE | 2020-04-10 11:20 | ECHO ---
HEIGHT: 5 ft 8 in WEIGHT: 211 lb 8 oz DATE OF STUDY: 04/10/[address]: Valerio Michel NP 2-DIMENSIONAL: YES M.MODE: YES DOPPLER: YES COLOR FLOW: YES TDS: YES PORTABLE: NO DEFINITY: NO BUBBLE STUDY: NO DIAGNOSIS: SHORTNESS OF BREATH, DIZZINESS CARDIAC HISTORY: CATHERIZATION: NO SURGERY: NO PROSTHETIC VALVE: NO PACEMAKER: NO MEASUREMENTS (cm) DIASTOLIC (NORMALS) SYSTOLIC (NORMALS) IVSd 1.0 (0.6-1.2) LA Diam 3.2 (1.9-4.0) LVEF 61% LVIDd 4.5 (3.5-5.7) LVIDs 3.0 (2.0-3.5) %FS 32% LVPWd 1.2 (0.6-1.2) Ao Diam 2.7 (2.0-3.7) 2 DIMENSIONAL ASSESSMENT: RIGHT ATRIUM: NORMAL LEFT ATRIUM: NORMAL RIGHT VENTRICLE: NORMAL LEFT VENTRICLE: NORMAL TRICUSPID VALVE: NORMAL MITRAL VALVE: NORMAL PULMONIC VALVE: NORMAL AORTIC VALVE: NORMAL PERICARDIAL EFFUSION: NONE AORTIC ROOT: NORMAL LEFT VENTRICULAR WALL MOTION: NORMAL DOPPLER/COLOR FLOW: NORMAL COMMENTS: NORMAL 2D ECHOCARDIOGRAM WITH DOPPLER. NO WALL MOTION ABNORMALITY. NO EFFUSION. TECHNOLOGIST: Augustin NARVAEZ
--- NOTE | 2020-04-10 12:18 | P.DS ---
Admission Date: 04/09/20 Discharge Date: 04/10/20 Primary Care Provider: Dr. Blakely Disposition: ROUTINE DISCHARGE Discharge Condition: GOOD Reason for Admission: Chest pain Consultations: Cardiology-Dr. Sun Procedures: TTE-normal Problem list Shortness of breath with elevated troponin, rule out ACS Diabetes mellitus type 2 Hypothyroidism Tobacco abuse Brief History of Present Illness: 49-year-old male with history of diabetes mellitus type 2, hypothyroidism presents emergency department for shortness of breath, dizziness. 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 Patient reports that this has persisted and was bad enough to bring him to the emergency department. During his evaluation in the emergency department patient was found to have slightly elevated troponin level with initial troponin being 0.04 and repeat being 0.06. Patient also hyperglycemic. ED provider wishes to admit patient under observation status for further evaluation and management. Hospital Course: Troponin trended 0.06 -> 0.04. He was given IV fluids with resolution is a KI (1.53 -> 0.91), patient felt significantly better, back to his normal self. Cardiology was consulted and echocardiogram was normal. It was felt this episode was likely due to heat exhaustion and dehydration, he was discharged home. Vital Signs/Physical Exam: Temp Pulse Resp BP Pulse Ox 97.4 F 62 20 113/66 96 04/10/20 12:00 04/10/20 12:00 04/10/20 12:00 04/10/20 12:00 04/10/20 12:00 General: Alert, In no apparent distress HEENT: EOMI, Sclerae nonicteric Neck: Supple, JVD not distended Respiratory: Clear to auscultation bilaterally, Normal air movement Cardiovascular: Regular rate/rhythm, Normal S1 S2 Gastrointestinal: Normal bowel sounds, Soft and benign, No tenderness Musculoskeletal: No tenderness Integumentary: No rashes Neurological: Normal speech, Normal affect Laboratory Data at Discharge: WBC 7.2 K/uL (4.3-10.9) D 04/10/20 03:50 Hgb 14.4 g/dL (13.6-17.9) 04/10/20 03:50 Hct 43.0 % (39.6-49.0) 04/10/20 03:50 Plt Count 202 K/uL (152-406) 04/10/20 03:50 PT 12.7 SECONDS (9.5-12.5) H 04/09/20 16:45 INR 1.08 04/09/20 16:45 Sodium 141 mmol/L (136-145) 04/10/20 03:50 Potassium 3.8 mmol/L (3.5-5.1) 04/10/20 03:50 BUN 14 mg/dL (7-18) 04/10/20 03:50 Creatinine 0.91 mg/dL (0.55-1.3) 04/10/20 03:50 Glucose 160 mg/dL (74-106) H 04/10/20 03:50 Magnesium 2.2 mg/dL (1.8-2.4) D 04/10/20 03:50 Total Bilirubin 0.7 mg/dL (0.2-1.0) 04/09/20 16:45 AST 51 U/L (15-37) H 04/09/20 16:45 ALT 114 U/L (12-78) H 04/09/20 16:45 Alkaline Phosphatase 84 U/L (45-117) 04/09/20 16:45 Troponin I 0.04 ng/mL (0.0-0.045) 04/10/20 00:52 Triglycerides 166 mg/dL (<150) H 04/10/20 03:50 Cholesterol 194 mg/dL (<200) 04/10/20 03:50 HDL Cholesterol 30 mg/dL (40-60) L 04/10/20 03:50 Cholesterol/HDL Ratio 6.47 04/10/20 03:50 Home Medications: Metformin HCl 2 tab PO BID 04/10/20 Pioglitazone HCl 30 mg PO DAILY 04/10/20 Thyroid,Pork [Orientor Thyroid] 120 mg PO DAILY 04/10/20 Diet: Regular Activity: Ad morteza Time spent managing pt's care (in minutes): 30
--- NOTE | 2020-04-12 11:36 | CON ---
Date of Consultation: 04/10/2020 Reason For Consultation: Chest pain. History Of Present Illness: Mr. Garrido is a 49-year-old male without any significant past cardiac history. He has a history of diabetes and hypothyroidism for which he takes metformin and Synthroid. He came in with multiple complaints, but with mostly shortness of breath, dizzy and weak. He had s ome atypical sharp and stabbing chest pain over the left lateral chest wall without any nausea or vom iting. He denied PND, orthopnea, or pedal edema. Denied palpitations or syncope. He was found to h ave a creatinine of 1.53 initially and it was down to 0.91 after hydration. The patient has been wor [place] on the outside. His troponin was negative. CT of his head was negative. His glucose was 292. Past Medical History: As stated above. Allergies: NONE. Medications: As stated earlier. Review of Systems: Negative. Social History: Negative. Family History: Negative. Physical Examination: Vital Signs: Stable. He was afebrile. HEENT: Negative. Neck: Supple with no bruit. Chest: Clear. Cardiac: Revealed a regular rhythm and rate. No murmurs, gallops, or rubs. Abdomen: Benign. Extremities: Revealed no clubbing, cyanosis, or edema. Diagnostic Data: As stated earlier. EKG is normal. Chest x-ray is normal. Impression And Plan: 1.Shortness of breath, dizziness and weakness secondary to dehydration. Creatinine was 1.53. He wa s hydrated and now is 0.91. Echocardiogram is pending. 2.Atypical chest pain, possibly secondary to dehydration as well, but the patient is diabetic and I think it would be reasonable to do an outpatient routine stress test on him. I will make an arrangem ent for that. 3.Hypothyroidism, on Synthroid. The patient can go home whenever it is okay with Dr. Oneal if the e chocardiogram is normal. CHERYL/RIK Voice ID: [id number] Report ID: [id number]
== END 2020-04-10 13:06 | disposition home or self-care (01) ==
LOC: ER 16:11 → ERHOLD 20:33 → 2ND 23:27
PROVIDERS: ADMIT Emergency Medicine; ATTEND Hospitalist
DX: R06.02 Shortness of breath (principal); E86.0 Dehydration; R07.89 Other chest pain; E03.9 Hypothyroidism, unspecified; E11.65 Type 2 diabetes mellitus with hyperglycemia; Z20.828 Contact with and (suspected) exposure to other viral communicable diseases; R94.31 Abnormal electrocardiogram [ECG] [EKG]; F17.200 Nicotine dependence, unspecified, uncomplicated; Z79.84 Long term (current) use of oral hypoglycemic drugs; Z79.899 Other long term (current) drug therapy
CPT/HCPCS: 93005; 93306; 85025 ×2; 80048 ×2; 36415; 83735 ×2; 82550; 85610; 80061; 82947 ×4; 80076; 84443; 83036; 84484 ×3; 84439; 70450; 71045; 96374; 99285; U0002; J3475; J7030 ×2; G0378 ×2